=== PATIENT | female | born 2000 | race Caucasian/White ===

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

== ENCOUNTER 2021-04-13 19:44 | Emergency (ER) | payer MEDICAID ==
[~2021-04-13] VITALS: Ht 167.6 cm; Wt 68.0 kg
[~2021-04-13 19:44] MED LIST: IBUP-1969 PO
[2021-04-13 19:50] VITALS: BP_SYST 128
[2021-04-13] MEDS ORDERED: AMOX500C2 PO (21:27)
[2021-04-13 21:40] VITALS: BP_SYST 128
== END 2021-04-13 21:40 | disposition home or self-care (01) ==
LOC: SED 19:44
DX: H66.91 Otitis media, unspecified, right ear (principal); Z79.899 Other long term (current) drug therapy
CPT/HCPCS: 99283